=== PATIENT | female | born 2000 | race Caucasian/White ===

== ENCOUNTER → 2018-09-08 | Outpatient (CLI) | payer BC, SELFPAY ==
[2018-09-08 14:57] LABS: Chlamydia Trachomatis by PCR Negative (Negative); Neisserai gonorrhoeae by PCR Negative (Negative); Probe Check PASS; Sample Adequacy Control PASS; Specimen Processing Control PASS
== END | disposition home or self-care (01) ==
LOC: LABSPEC 09:46
PROVIDERS: Visit Provider Obstetrics & Gynecology
DX: Z11.3 Encounter for screening for infections with a predominantly sexual mode of transmission (principal)
CPT/HCPCS: 87491; 87591

== ENCOUNTER → 2019-04-09 12:31 | Outpatient (CLI) | payer BC, SELFPAY ==
[2019-04-09 14:49] LABS: Cholesterol 204 mg/dL (200); High Density Lipoprotein 85 mg/dL; Triglycerides 102 mg/dL; Very Low Density Lipoprotein 20 mg/dL (5-40)
== END ==
PROVIDERS: Family Provider Family Medicine; PCP Family Medicine; Referring Provider Family Medicine; Visit Provider Family Medicine
DX: Z00.00 Encounter for general adult medical examination without abnormal findings (principal); Z83.42 Family history of familial hypercholesterolemia
CPT/HCPCS: 36415; 80061

== ENCOUNTER 2019-10-16 17:10 | Emergency (ER) | payer BC, SELFPAY ==
[2019-10-16 17:13] VITALS: BP 121/68; PULSE 92; RESP 17; TEMP 36.6; O2SAT 100; BMI 21.2
[2019-10-16 17:22] VITALS: BP 122/81; PULSE 82; RESP 13; O2SAT 98
--- NOTE | 2019-10-16 17:35 | EKG12_ITS ---
Test Reason : Blood Pressure : / mmHG Vent. Rate : 072 BPM Atrial Rate : 072 BPM P-R Int : 132 ms QRS Dur : 084 ms QT Int : 388 ms P-R-T Axes : 068 062 063 degrees QTc Int : 424 ms Normal sinus rhythm Normal ECG Confirmed by VIRIDIANA SHELBY, MIGUELINA ([id number]), online editor [place]HE [place] ([id number]) on 10/19/2019 11:04:45 AM Referred By: BRODIE Confirmed By:MIGUELINA KEMP MD
--- NOTE | 2019-10-16 17:39 | ED.VIS.CHEST ---
History of Present Illness Chief Complaint: Chest Pain Informant: Patient Onset: Today Activity at onset: - - awoke with symptoms this AM Timing: Continuous Quality: Tightness Location: Substernal Current Severity: Moderate Maximum Severity: Moderate Worsened By: Nothing Relieved By: Nothing Associated Symptoms: Dyspnea, - - painful swallowing; no trouble swallowing or throat swelling. Negative for: Nausea, Vomiting, Diaphoresis, Cough, Fever, Lightheadedness, Palpitations Narrative: Patient states she was at a [employer] student [employer] at [facility] last night and was drinking quite a bit of hard alcohol. She woke up this morning feeling fatigued, and having the above symptoms. She went to urgent care, they thought she needed more than they could provide, so referred her here to the ER. She has a history of spring seasonal allergies, but states they have actually been feeling a little better in the last couple weeks, and she has never had asthma or reactive airway disease issues with them. She states she mainly has itchy watery eyes and blows her nose a lot. She denies any cough or fevers recently. She last had contact with someone with COVID-19 about 5 weeks ago, but has not seen that person in 3 weeks until last night. He is better. The chest discomfort does not radiate to her arms, jaw, back. No nausea or vomiting or abdominal pain. She is on control but is not a smoker. No calf pain or leg swelling. No history of DVT or PE. She does not use any illicit substances. - Past Medical History (1) Seasonal allergies Status: Chronic Past Medical History - Allergies and Home Meds Allergies/Adverse Reactions: Allergies No Known Allergies Allergy (Verified 10/16/19 17:12) Primary Care Physician: Jaci Bull MD [Primary Care Provider] - Lives: With Family Smoking Status: Never smoker Alcohol: Occasional Review of Systems General: Denies: Chills, Fever, Sweats Eyes: Denies: Visual changes - bilaterally, Diplopia ENT: Reports: - - Mild odynophagia. Denies: Rhinorrhea, Sore throat Cardiovascular: Reports: Chest pain. Denies: Palpitations Respiratory: Reports: Dyspnea. Denies: Cough, Dyspnea on exertion Gastrointestinal: Denies: Abdominal pain, Nausea, Vomiting, Diarrhea, Melena, Hematochezia Genitourinary: Denies: Dysuria, Hematuria, Frequency Musculoskeletal: Denies: Neck pain, Back pain, Swelling, Extremity Pain Skin: Denies: Rash, Wounds Neurological: Denies: Headache, Weakness, Numbness Physical Exam Vital Signs/Narrative: Vital Signs Temp Pulse Resp BP Pulse Ox 10/16/19 17:22 82 13 122/81 H 98 10/16/19 17:13 97.9 F 92 17 121/68 H 100 Inital Vital Signs reviewed: Yes General: Well nourished, Well developed, No Acute Distress - Well-appearing, conversive in full sentences Head: Normocephalic, Atraumatic Eyes: Perrl, EOMI ENT: Moist mucous membranes, No rhinorrhea, - - Posterior oropharynx clear and normal. No trismus or stridor. Neck: Supple, Nontender, No lymphadenopathy Cardiovascular: Regular rate, Regular rhythm, No murmurs. Negative for: Tachycardia Respiratory: No distress, CTA bilaterally, Chest nontender Abdomen: Soft, Nontender, Nondistended, Normal bowel sounds Back: Nontender, Normal Inspection Extremities: Nontender, No edema. Negative for: Calf Tenderness Skin: Normal color, No rash, No Trauma Neurological: Alert, Oriented x3, Cranial nerves II-XII grossly intact, Normal Strength, Normal Sensation, Normal Gait Psychological: Normal affect, Normal Mood Diagnostic/Tx/Re-eval Impressions Chest X-Ray 10/16/19 17:45 IMPRESSION: Normal x-ray examination of the chest. Electronically Signed: Kathya Gael, at 18:08 EDT Tel , Service support , 10/16/19 17:45 Chest PA and Lateral [RAD] Stat Laboratory Results 10/16/19 10/16/19 18:10 18:10 WBC 9.4 RBC 4.35 Hgb 13.3 Hct 39.4 MCV 90.6 MCH 30.6 MCHC 33.8 RDW Std Deviation 41.5 RDW Coeff of Liz 12.5 Plt Count 220 MPV 12.3 H Immature Gran % (Auto) 0.200 Neut % (Auto) 72.7 H Lymph % (Auto) 19.0 Coal % (Auto) 7.2 Eos % (Auto) 0.4 Baso % (Auto) 0.5 Absolute Neuts (auto) 6.8 Absolute Lymphs (auto) 1.79 Nucleated RBC % 0 Sodium 138 Potassium 3.7 Chloride 106 Carbon Dioxide 24.0 Anion Gap 8 BUN 12 Creatinine 0.76 Estim Creat Clear Calc 96.86 Est GFR (MDRD) Af Amer 124 Est GFR (MDRD) Non-Af 102 BUN/Creatinine Ratio 15.8 Glucose 102 Calcium 9.2 Troponin I < 0.015 - Rhythm Strip Rhythm Strip: Sinus Rhythm Rate: 70 Ectopy: None - EKG Initial EKG Interpretation: Sinus Rhythm, No Acute Injury Pattern - normal EKG Treatment: GI Cocktail Repeat Eval: Pain Free BO Risk: No Positive BO Elements Score: 0 - Medical Decision Making Patient was treated with albuterol and a GI cocktail. She states her tightness was improved before the albuterol aerosol, and it made her shaky and anxious, so she really did not notice a major difference. However, she was then given a GI cocktail and felt much better after that. Her work-up as above is all very normal. I do not think she needs a d-dimer or to be considered for pulmonary embolus here, I do not think that is likely. Furthermore, I do not think she necessarily has COVID-19. We talked about it and discussed the possibility, and also the fact that we cannot run in-house COVID-19 testing right now, and the test will be sent out to be run at a commercial lab, so the turnaround time is multiple days. If she has symptoms that persist, she certainly could be tested for this as an outpatient with a very low likelihood of harm since we did not run the test now. I suspect this is more likely GI in etiology given the above. Therefore I recommend if she has recurrence, to take a 2-week course of PPI. It is possible that this was episodic and the symptoms will not recur, so for that reason we decided not to commit her to a prescription for now. Mom was in the room for all of this, she used to be a low voltage technician and is comfortable with all of this logic and plan. We discussed reasons to return. ED Disposition - Plan for ED Patient: Disposition: Home or Assisted Living Diagnosis: Chest pain, unspecified Instructions: ED Chest Pain NonCardiac Referrals: Jaci Bull MD [Primary Care Provider] - 3-5 Days if not improving Additional Instructions: If recurrent discomfort, first try antacid like Tums, Maalox, or Mylanta, and if it helps start taking Prilosec OTC 1 tablet daily for at least 2 weeks and reevaluate, following up with your doctor. If at any point you are uncomfortable and want to be reevaluated you are welcome to return to the ER.
[2019-10-16] MEDS: Mag Hydrox/Al Hydrox/Simeth 30 ML UDC PO (17:40)
--- NOTE | 2019-10-16 17:45 | RAD_ITS ---
STUDY: X-RAY CHEST REASON FOR EXAM: Female, 19 years old. CHEST TIGHTNESS AND SOB THAT STARTED THIS AM TECHNIQUE: Frontal and lateral views of the chest COMPARISON: None. FINDINGS: The lungs are clear and expanded. There is no demonstrated pleural abnormality. Normal size heart. Normal mediastinum and reed. Normal visualized pulmonary arteries. Normal visualized aortic arch and descending thoracic aorta. There is mild scoliosis of the thoracolumbar spine. There is no demonstrated abnormality of the visualized soft tissue structures of the upper abdomen. RAD/Chest PA and Lateral IMPRESSION: Normal x-ray examination of the chest. Electronically Signed: Kathya Mayo, at 18:08 EDT Tel , Service support ,
[2019-10-16] MEDS: Albuterol 2.5 MG/3 ML VIAL.NEB. INHALATION (18:18)
[2019-10-16 18:20] VITALS: PULSE 91; RESP 16; O2SAT 100
[2019-10-16 18:25] LABS: Absolute Lymphocyte Count 1.79 X10^3/uL (0.83-4.51); Absolute Neutrophil Count 6.8 X10^3/uL (2.0-7.7); Basophil# 0.05 X10^3/uL; Basophil% 0.5 % (0-1); Eosinophil# 0.04 X10^3/uL; Eosinophils% 0.4 % (0-5); Hematocrit 39.4 % (37-47); Hemoglobin 13.3 g/dL (12.0-15.0); Lymphocyte # 1.79 X10^3/ul (4.0); Mean Corp Hgb Conc 33.8 g/dL (32-36); Mean Corpuscular Hgb 30.6 pg (27.0-32.0); Mean Corpuscular Volume 90.6 fL (81-99); Mean Platelet Vol. 12.3 fl (6.2-12.0); Monocyte# 0.68 X10^3/uL; Monocyte% 7.2 % (0-10); NRBC Flagged by Analyzer 0 % (0-5); Neutrophil # 6.83 X10^3/uL (2.7-7.7); Neutrophil % 72.7 % (47-70); Platelet Count 220 K/mm3 (150-450); RBC Distribution Width CV 12.5 % (11.6-14.6); RBC Distribution Width SD 41.5 fl (35.1-43.9); Red Blood Count 4.35 M/mm3 (4.2-5.4); White Blood Count 9.4 K/mm3 (4.4-11.0)
[2019-10-16 18:45] LABS: Anion Gap 8 (5-15); BUN 12 mg/dL (7-18); BUN/Creat Ratio 15.8 RATIO (10-20); Calcium,Total 9.2 mg/dL (8.5-10.1); Chloride 106 mmol/L (98-107); Creatinine, Serum 0.76 mg/dL (0.55-1.02); EST Glomerular Filtration Rate 102 mL/min (>60); Est Glom Filt Rate - Afr Amer 124 mL/min (>60); Estimated Creatinine Clearance 96.86 ml/min; Glucose 102 mg/dL (74-106); Potassium 3.7 mmol/L (3.5-5.1); Sodium Level 138 mmol/L (136-145)
[2019-10-16] MEDS: Pantoprazole Sodium 40 MG Tablet PO (19:17)
== END 2019-10-16 19:18 | disposition home or self-care (01) ==
PROVIDERS: Emergency Provider Emergency Medicine; PCP Family Medicine
DX: R07.89 Other chest pain (principal); R53.83 Other fatigue; R06.00 Dyspnea, unspecified; J30.2 Other seasonal allergic rhinitis; Z79.3 Long term (current) use of hormonal contraceptives
CPT/HCPCS: 71046; 80048; 84484; 85025; 93005; 94640; 99285; A4216

== ENCOUNTER 2021-08-14 06:29 | Day surgery (SDC) | payer BC, SELFPAY ==
[2021-08-14] VITALS (8 sets, daily range): BP systolic 83–109; BP diastolic 43–71; PULSE 63–88; RESP 18; TEMP 36.8–37.1; O2SAT 97–100; BMI 22.6
--- NOTE | 2021-08-14 | COLBX_PTH ---
PATIENT: BUDDY SAINZ LOC: EN U#:[id number] AGE/SX: 21 ROOM: RE08/14/[address]: Dr. Angel Terrazas MD : 2000 BED: DIS: 08/14/2021 SPEC #: [id number] RECD: 08/14/21 15:28 STATUS: ALINA YULISSA #: [id number] BEBE: 08/14/21 00:[address]: Angel Terrazas DEPT: SURGICAL PATHOLOGY RECD BY: Emory Owens ENTERED: 08/15/21 09:27 SP TYPE: COLON BX OTHR DR: No Primary Care Phys Tissues: A - Ileum, NOS B - COLON BIOPSY Procedures: Surgery Specimen Level IV HEADER OPERATION: Colonoscopy with biopsies (MAC) PRE-OP DIAGNOSIS: Bloody diarrhea TISSUE SUBMITTED: A ? Terminal ileum biopsy, B ? Random colon biopsy MICROSCOPIC DIAGNOSIS A. Terminal ileum, biopsy: Fragments of small intestinal mucosa, no pathologic diagnosis. B. Colon, random biopsy: Moderate chronic active colitis. Negative for dysplasia. See microscopic description and comment. DAMARIS:yelitza 08/16/2021 COMMENT B. The findings are consistent with inflammatory bowel disease (ulcerative colitis). Correlation with clinical, endoscopic findings and appropriate follow up are necessary. MICROSCOPIC DESCRIPTION Slides are reviewed. B. The specimen shows fragments of colonic mucosa with moderate acute and chronic inflammatory cell infiltrates in the lamina propria, mild glandular distortion, cryptitis and crypt abscesses. Granulomas are not seen. No evidence of dysplasia. GROSS DESCRIPTION A - Received in fixative is one container labeled with the patient's name and designated terminal ileum. The specimen consists of multiple irregular fragments of light rodrigues soft tissue that in aggregate measure 1 x 0.3 x 0.1 cm. The specimen is totally submitted in one cassette. B - Received in fixative is one container labeled with the patient's name and designated random colon biopsy. The specimen consists of multiple irregular fragments of light rodrigues soft tissue that in aggregate measure 2 x 0.5 x 0.1 cm. The specimen is totally submitted in one cassette. / SJ:yelitza 08/15/2021 TC:2 CPT: 84245 x2
[2021-08-14 06:49] LABS: Internal QC Validated? YES +Cl - CLEAR BKGD; Pregnancy, Urine Negative Negative
[2021-08-14] MEDS: Lactated Ringers 1,000 ML 15 ML IV (07:03)
--- NOTE | 2021-08-14 07:51 | HP.PCM_ITS ---
History and Physical Date of Admission: 08/14/21 Intake Vital Signs 08/13/21 13:15 Height 5 ft 3 in Weight: 130 lb BMI 23.0 BP 108/72 Blood Pressure Location Rt brachial Position Sitting Respiration 16 Intake Visit Reasons: bloody diarrhea--endo 08/14/21 Chief Complaint: bloody diarrhea Wearing Apparel Shaker Required: No Is patient in pain?: No Allergies No Known Allergies Allergy (Verified 08/13/21 13:13) Medications Lactobacill acidophilus-L.helvetic-B.bifidum 250 million cell capsule cap PO 08/13/21 [History Confirmed 08/13/21] calcium carbonate 600 mg calcium (1,500 mg) tablet 600 mg PO DAILY 08/13/21 [History Confirmed 08/13/21] cholecalciferol (vitamin D3) 25 mcg (1,000 unit) capsule 25 mcg PO DAILY 08/13/21 [History Confirmed 08/13/21] magnesium 200 mg tablet 200 mg PO DAILY 08/13/21 [History Confirmed 08/13/21] zinc 50 mg tablet 50 mg PO DAILY 08/13/21 [History Confirmed 08/13/21] PFSH Medical History Alcohol use Anxiety Back pain Diarrhea Lucia Evangelista infection Headache Hepatitis Low iron Non-smoker Surgical History Hx of oral surgery Social History Smoking Status: Never smoker HPI HPI HPI: BUDDY SAINZ, is a 21 F who presents to the office today for bloody diarrhea. The patient reports is been going on for 2 months. Patient reports lower abdominal pain and bloody diarrhea. She says she is going upwards of 20 times a day. She does not have any family history of Crohn's disease. She has never had a colonoscopy. She has no nausea or vomiting. ROS General General: Yes fatigue; No weight change, appetite, colon cancer, breast cancer or weakness HEENT HEENT: No difficulty swallowing, eye injury, eye surgery, swollen glands or hoarseness Endo Endocrine: No thyroid disease, diabetes mellitus, thyroid cancer, Hair loss, heat intolerance or cold intolerance Skin Skin: No rash or changing moles Breast Breast: No left breast lump, right breast lump, nipple discharge, breast pain, abnormal mammogram, abnormal US or breast enlargement Musc Musculoskeletal: Yes back problems; No arthritis, rheumatoid arthritis, gout or joint pain Cardio Cardiovascular: No murmur, pacemaker, heart disease, atrial fibrillation, high blood pressure, heart attack, heart stent, palpitations, shortness of breat with exertion or chest pain Psych Psychiatric: Yes anxiety; No depression or hearing voices Resp Respiratory: No shortness of breath, No sleep apnea, No cough, No COPD, No asthma, No emphysema and No wheezing Gastro Gastrointestinal: Yes abdominal pain, Yes nausea or vomiting, Yes diarrhea, Yes constipation, Yes blood in stool, No acid reflux, No hemorrhoids, No ulcers, No gallbladder problem and Yes black,tarry stools Jesus Hematologic: No blood thinners, No blood disorders, No bleeding, Yes anemia and No blood clots Neuro Neurologic: No system reviewed and no additional complaints, except as do cumented, No as per HPI, No abnormal gait, No abnormal hearing, No abnormal movements, No abnormal speech, No behavioral changes, No burning sensations, No confusion, No convulsions, No disequilibrium, No dizziness, No localized weakness, No frequent falls, No headache(s), No lack of coordination, No loss of vision, No memory loss, No numbness, No other visual disturbances, No radicular pain, No restless legs, No sensory deficit, No syncope, No tingling, No tremor(s), No weakness and No other Exam Const General: cooperative Orientation: alert and oriented x3 HENMT Head: normal to inspection Neck Neck: normal visual inspection and full ROM Chest Chest palpation & inspection: normal inspection of the chest Resp Effort & Inspection: normal respiratory effort Auscultation: clear to auscultation bilaterally Cardio Rate: regular rate Rhythm: regular rhythm GI Inspection: non-distended Palpation: soft and tender in the LLQ and in the RLQ Skin General: no rashes or lesions noted Neuro General: patient alert and patient oriented x3 Extrem General: full ROM Psych Appearance: grossly normal Mental Status: mental status grossly normal Assessment and Plan Assessment and Plan (1) Bloody diarrhea: Status: Acute Orders: Orders: Colonoscopy 07/31/21 Plan - Dr. Angel Terrazas MD: Patient has bloody diarrhea and lower abdominal pain. The symptoms are suggestive of possible Crohn's I would recommend colonoscopy with biopsies of the terminal ileum. Patient is scheduled for colonoscopy tomorrow. I explained endoscopy in detail to the patient. I explained the risks including but not limited to stroke or heart attack with anesthesia, perforation of the GI tract, bleeding, infection. I explained that any of these could necessitate further emergency surgery. The patient understands and all questions were answered sufficiently. The patient wishes to proceed with procedure. Angel Terrazas MD Pager: [facility] [address] [place] [address], [address] [place] [address] Office: I have re-examined the patient. There are no clinical changes since date of exam.
--- NOTE | 2021-08-14 07:59 | OP.COLON_ITS ---
Patient Name: Ivory Pena Procedure Date: 08/14/2021 7:09 AM Date of : 2000 Age: 21 Procedure: Colonoscopy Indications: Chronic diarrhea, Hematochezia Providers: Angel Terrazas MD Medicines: Monitored Anesthesia Care Patient Profile: This is a 21 year old female. Refer to note in patient chart for documentation of history and physical. Last Colonoscopy: none. The patient's first colonoscopy is today. Complications: No immediate complications. Estimated blood loss: Minimal. Procedure: Pre-Anesthesia Assessment: - Prior to the procedure, a History and Physical was performed, and patient medications and allergies were reviewed. The patient's tolerance of previous anesthesia was also reviewed. The risks and benefits of the procedure and the sedation options and risks were discussed with the patient. All questions were answered, and informed consent was obtained. Prior Anticoagulants: The patient has taken no previous anticoagulant or antiplatelet agents. After reviewing the risks and benefits, the patient was deemed in satisfactory condition to undergo the procedure. After I obtained informed consent, the scope was passed under direct vision. Throughout the procedure, the patient's blood pressure, pulse, and oxygen saturations were monitored continuously. The Colonoscope was introduced through the anus and advanced to the terminal ileum. The colonoscopy was performed without difficulty. The patient tolerated the procedure well. The quality of the bowel preparation was good. Scope In: 7:29:32 AM Scope Withdrawal Time 0 hours 10 minutes 15 seconds Scope Out: 7:46:45 AM Total Procedure Duration Time 0 hours 17 minutes 13 seconds Findings: Inflammation characterized by congestion (edema) was found in a continuous and circumferential pattern from the rectum to the ascending colon. The ascending colon, the cecum and the ileocecal valve were spared. This was graded as Matts grade 3 (marked granularity and edema of the mucosa with contact bleeding and spontaneous bleeding). Biopsies were taken with a cold forceps for histology. The terminal ileum appeared normal. Biopsies were taken with a cold forceps for histology. Impression: - Colitis. Inflammation was found from the rectum to the ascending colon. This was graded as Matts grade 3 (marked mucosal granularity and edema, with bleeding). Biopsied. - The examined portion of the ileum was normal. Biopsied. Recommendation: - Discharge patient to home. - Resume previous diet. - Continue present medications. - Use prednisone 40 mg PO once a day for 3 weeks. - Refer to a pediatric intensive physician at the next available appointment. - Repeat colonoscopy date to be determined after pending pathology results are reviewed for surveillance based on pathology results. Procedure Code(s): --- Professional --- 27678, Colonoscopy, flexible; with biopsy, single or multiple Diagnosis Code(s): --- Professional --- K52.9, Noninfective gastroenteritis and colitis, unspecified K92.1, Melena (includes Hematochezia) CPT copyright 2017 [employer]. All rights reserved. The codes documented in this report are preliminary and upon battery container inspector review may be revised to meet current compliance requirements. Angel Terrazas MD 08/14/2021 7:59:07 AM This report has been signed electronically. Number of Addenda: 0 Note Initiated On: 08/14/2021 7:09 AM
--- NOTE | 2021-08-14 08:00 | OP.CCLET_ITS ---
08/14/2021 Jaci Bull [place] [id number] [place] [address] Re : Colonoscopy procedure for Ivory Jean Dear Dr. Bull This procedure was performed on Saturday, August 14, 2021. My impressions and recommendations are as follows: Impressions : - Colitis. Inflammation was found from the rectum to the ascending colon. This was graded as Matts grade 3 (marked mucosal granularity and edema, with bleeding). Biopsied. - The examined portion of the ileum was normal. Biopsied. Recommendations : - Discharge patient to home. - Resume previous diet. - Continue present medications. - Use prednisone 40 mg PO once a day for 3 weeks. - Refer to a oceanographer physical at the next available appointment. - Repeat colonoscopy date to be determined after pending pathology results are reviewed for surveillance based on pathology results. My findings are described in the full procedure note, which is enclosed. If I can be of further assistance, please feel free to contact me at Doctor phone number(s): , Work: . Sincerely, Angel Terrazas MD 08/14/2021 7:59:07 AM This report has been signed electronically.
== END 2021-08-14 08:33 | disposition home or self-care (01) ==
LOC: EN 06:33 → AC 06:33
PROVIDERS: Anesthesiology; Referring Provider Surgery; Visit Provider Surgery
PROC: 0DJD8ZZ Inspection of Lower Intestinal Tract, Via Natural or Artificial Opening Endoscopic (ICD-10-PCS; CPT 45378; principal; 2021-08-14 07:25)
DX: K52.9 Noninfective gastroenteritis and colitis, unspecified (principal); K92.1 Melena; R60.9 Edema, unspecified; M54.9 Dorsalgia, unspecified; G89.29 Other chronic pain; Z79.899 Other long term (current) drug therapy
CPT/HCPCS: 45380; 81025; 87426; 88305; C9803; J7120; J2405